=== PATIENT | female | born 1995 | race Caucasian/White ===

== ENCOUNTER 2023-06-28 10:23 | Outpatient (AMB) | payer OTHER, SELFPAY ==
--- NOTE | 2023-06-28 10:31 | MHC.OFFVIS ---
Intake Vital Signs 06/28/23 10:41 Height 5 ft 4 in Weight 130 lb BMI 22.3 BP 125/75 Blood Pressure Location Rt brachial Position Sitting Pulse 64 Intake Visit Reasons: painful internal hemorrhoids, rectal bleeding Intake Note: Patient referred by PCP Dr. Holloway for internal hemorrhoids. Present for 8ys. Patient c/o: on and off rectal bleeding. Denies constipation. Animal Rehabilitator Required: No Accompanied by: Self / Same As Patient Allergies No Known Allergies Allergy (Verified 06/28/23 10:36) Medication List - Last Reconciled 06/28/23 by Alonzo Matt MD emtricitabine-tenofovir alafen 120-15 mg (Descovy) tabs PO HPI painful internal hemorrhoids, rectal bleeding HPI Details 28-year-old male referred for hemorrhoid issues. He says that he has had hemorrhoids for many years. He describes problems with occasional swelling, and bleeding. He says that sometimes it would be seen on the toilet bowl itself. He is thomas and admits to anal receptive intercourse. He does notice pain and bleeding with this. He feels that these symptoms seemed to be worse over the years so he is interested in having hemorrhoid surgery. He denies constipation. [facility] Medical History (Updated 06/28/23 @ 10:57 by Alonzo Matt MD) Bleeding hemorrhoids Surgical History Hx of tonsillectomy Family History Maternal Grandmother Melanoma of skin Social History Alcohol intake: current Alcohol intake frequency: holidays/special occasions only Review of Systems Const Denies chills and Denies fever(s) Card Denies chest pain, Denies dyspnea and Denies dyspnea on exertion Resp Denies cough, Denies dyspnea and Denies dyspnea on exertion GI Reports hematochezia and Denies change in bowel habits Denies hematuria Musc Denies back pain and Denies limited range of motion Neuro Denies focal weakness and Denies convulsions Psych Denies depression and Denies mood swings Physical Exam Vital Signs: Last Vital Signs Pulse 64 06/28/23 10:41 BP 125/75 06/28/23 10:41 BMI result Body Mass Index 22.3 Const General: comfortable and no acute distress Orientation/consciousness: patient oriented x3 Neck Neck: Yes no lymphadenopathy Resp Auscultation: clear to auscultation bilaterally Cardio Rhythm: regular rhythm GI Other: Rectal exam shows external hemorrhoids left and right, anoscopy as described Palpation (GI): Soft to palpation, nontender and no guarding Neuro General: patient oriented x3 Office Procedures Anoscopy He was in sonal-knife position. The anoscope was gently inserted. A full examination of the anal canal was done. He had both internal external hemorrhoidal columns on the left and right side, prominent. One of the columns on the left seems to bleed easily. However, there were no obvious lesions. There was no fissure. There was no induration on digital exam. [id number] Assessment & Plan Assessment & Plan (1) Bleeding hemorrhoids: Code(s): K64.9 - Unspecified hemorrhoids Plan: He has internal and external hemorrhoids, with multiple columns. He describes frequent bleeding and occasional swelling and pain. He is contemplating on proceeding with hemorrhoidectomy. I reviewed with him the technique of this procedure. I discussed the risks including but not limited to bleeding, infections, postop pain, poor healing, sphincter injury, as well as the benefits and alternatives. I reviewed with him what to expect postoperatively He understands and says he will call me once he is ready to schedule for this procedure. Coding Level of Care Code New Pt Level 3 (77897) Diagnoses Bleeding hemorrhoids K64.9 CPT Codes Details - CPT: 58573-[id number] ([id number])
[2023-06-28 10:41] VITALS: BP 125/75; PULSE 64; BMI 22.3
== END 2023-06-28 11:35 | disposition home or self-care (01) ==
PROVIDERS: PCP Internal Medicine; Referring Provider Internal Medicine; Visit Provider Surgery
DX: K64.9 Unspecified hemorrhoids (principal)
CPT/HCPCS: 46600; 99203

== ENCOUNTER → 2023-06-28 10:23 | Outpatient (BNVA) | payer OTHER, SELFPAY | PROVIDERS: PCP Internal Medicine; Referring Provider Internal Medicine; Visit Provider Surgery | DX: K64.8 Other hemorrhoids (principal); K62.5 Hemorrhage of anus and rectum | CPT/HCPCS: 46600; 99202 ==

== ENCOUNTER 2023-10-24 14:20 | Outpatient (REF) | payer OTHER, SELFPAY ==
[2023-10-26 06:53] LABS: Mumps Virus IgG Antibody <9.00 AU/mL; Rubeola IgG (Measles) >300.00 AU/mL
== END 2023-10-24 14:21 | disposition home or self-care (01) ==
LOC: HO.LAB 14:20
PROVIDERS: PCP Internal Medicine; Visit Provider Internal Medicine
DX: Z01.84 Encounter for antibody response examination (principal)
CPT/HCPCS: 36415; 86735; 86762; 86765

== ENCOUNTER 2024-03-20 08:44 | Outpatient (AMB) | payer OTHER, SELFPAY ==
--- NOTE | 2024-03-20 08:48 | A.OFFVIS_ITS ---
Vital Signs 03/20/24 08:53 Weight 133 lb BP 112/68 Blood Pressure Location Rt brachial Position Sitting Pulse 72 Intake Visit Reasons: Discuss Hemorroid surgery Intake Note: Patient last visit June 2023. Today's appointment scheduled to re- discuss hemorrhoidectomy procedure. Patient c/o; external hemorrhoids, bleeding. Used Preparation H but no improvement. Also tried homeopathy suppository. Water Maintenance Supervisor Required: No Accompanied by: Self / Same As Patient Allergies No Known Allergies Allergy (Verified 03/20/24 08:58) Medication List - Last Reconciled 03/20/24 by Alonzo Matt MD emtricitabine-tenofovir alafen 120-15 mg (Descovy) tabs PO HPI HPI Discuss Hemorroid surgery: Details: 28-year-old male here for follow-up for his hemorrhoids. I had seen him in June, 4 complaints of bleeding and pain with this hemorrhoids. At that time, I did offer him the option of hemorrhoidectomy but he was not ready for this then. Examination had shown prominent internal external hemorrhoidal columns He does state that he seems to have now more pain with bowel movements. He is thomas and admits to anal receptive intercourse and says that this hurts as well. He describes seeing blood per rectum on wiping periodically. He denies constipation. [facility] Medical History (Updated 03/20/24 @ 09:12 by Alonzo Matt MD) Anal fissure Bleeding hemorrhoids Surgical History Hx of tonsillectomy Family History Maternal Grandmother Melanoma of skin Social History Alcohol intake: current Alcohol intake frequency: holidays/special occasions only Review of Systems Const Denies chills and Denies fever(s) Card Denies chest pain, Denies dyspnea and Denies dyspnea on exertion Resp Denies cough, Denies dyspnea and Denies dyspnea on exertion GI Reports hematochezia and Denies change in bowel habits Denies hematuria and Denies difficulty urinating Musc Denies back pain and Denies limited range of motion Neuro Denies focal weakness and Denies convulsions Psych Denies depression and Denies mood swings Physical Exam Vital Signs: Last Vital Signs Pulse 72 03/20/24 08:53 BP 112/68 03/20/24 08:53 Const General: comfortable and no acute distress Orientation/consciousness: patient oriented x3 Neck Neck: Yes no lymphadenopathy Resp Auscultation: clear to auscultation bilaterally Cardio Rhythm: regular rhythm GI Other: Rectal exam - posterior midline fissure with a sentinel pile noted on retraction, anoscopy not done in view of tenderness Palpation (GI): Soft to palpation, nontender and no guarding Neuro General: patient oriented x3 Assessment & Plan Assessment & Plan (1) Anal fissure: Code(s): K60.2 - Anal fissure, unspecified Category: Medical Plan: Examination today actually shows a posterior midline fissure at the distal dentate line along with a sentinel pile. He does have small hemorrhoids I explained to him that 1 option is to proceed with exam under anesthesia, lateral internal sphincterotomy to help with his anal fissure. I explained to him the technique of this procedure. I reviewed the risks including but not limited to bleeding, infections, sphincter dysfunction, as well as the benefits and alternatives. I reviewed with him what to expect postoperatively. He has given consent I also told him that if we see large hemorrhoids, we may remove these as well. Coding Level of Care Code Est Pt Level 3 (02739) Diagnoses Anal fissure K60.2
[2024-03-20 08:53] VITALS: BP 112/68; PULSE 72
== END 2024-03-20 09:31 | disposition home or self-care (01) ==
PROVIDERS: PCP Internal Medicine; Visit Provider Surgery
DX: K60.2 Anal fissure, unspecified (principal)
CPT/HCPCS: 99213

== ENCOUNTER → 2024-03-20 08:44 | Outpatient (BNVA) | payer OTHER, SELFPAY | PROVIDERS: PCP Internal Medicine; Visit Provider Surgery | DX: K60.2 Anal fissure, unspecified (principal) | CPT/HCPCS: 99212 ==

== ENCOUNTER 2024-04-18 09:05 | Day surgery (SDC) | payer OTHER, SELFPAY ==
[2024-04-16 11:46] VITALS: BMI 22.8
--- NOTE | 2024-04-16 13:43 | P.CONAN_ITS ---
Documented by User: Ely Patel NP 04/16/24 13:43 HPI - Anesthesia Eval Consult details Narrative: 28yo M for EUA,Lateral Internal Sphincterotomy [facility] Active Problems Active Problems: All Active Problems Anal fissure (Acute) Bleeding hemorrhoids (Acute) Past Medical History Medical History Anal fissure Bleeding hemorrhoids Family History Family History Maternal Grandmother Melanoma of skin Surgical History Surgical History Hx of tonsillectomy Social History Social History Household Members Other:: parents Are you a primary grounds caretaker to a significant other at home: No Do you presently have visiting nurse or other home services: No Alcohol intake: current Alcohol intake frequency: holidays/special occasions o nly Patient Tobacco Use Status: Never used Tobacco Substance Use Frequency: Daily Have you been hit, kicked, punched, or otherwise hurt by someone within the past year? If so, by whom?: No Are you DNR?: No Advance Directives: No Advance Directives Information Provided: Yes Recently lost weight without trying: No Nutrition Risks: No Nutritional Risk Meds Allergies Allergy/AdvReac Type Severity Reaction Status Date / Time No Known Allergies Allergy Verified 04/18/24 09:35 Exam Height,Weight and Vital Signs: Height 5 ft 4 in Weight 60.328 kg Assessment and Plan Assessment Anesthesia Assessment: Chart Reviewed Documented by User: Ashok Bland MD 04/18/24 10:09 [facility] Past Medical History Medical History Anal fissure Bleeding hemorrhoids Family History Family History Maternal Grandmother Melanoma of skin Family history of problems with anesthesia: No Surgical History Surgical History Hx of tonsillectomy History of Problems with Anesthesia: No Social History Social History Household Members Other:: parents Are you a primary grounds caretaker to a significant other at home: No Do you presently have visiting nurse or other home services: No Alcohol intake: current Alcohol intake frequency: holidays/special occasions only Patient Tobacco Use Status: Never used Tobacco Substance Use Frequency: Daily Have you been hit, kicked, punched, or otherwise hurt by someone within the past year? If so, by whom?: No Are you DNR?: No Advance Directives: No Advance Directives Information Provided: Yes Recently lost weight without trying: No Nutrition Risks: No Nutritional Risk Meds Allergies Allergy/AdvReac Type Severity Reaction Status Date / Time No Known Allergies Allergy Verified 04/18/24 09:35 Exam Airway Mallampati Class: I TM Dist: >3cm Neck ROM: Full Loose/Missing/Broken Teeth: No Heart: ok Lungs: ok Assessment and Plan Assessment Anesthesia Assessment: Anesthesia Plan Discussed Final Anesthetic Review Family History of Problems with Anesthesia: No History of Problems with Anesthesia: No NPO: Yes ASA Class: I Final Preanesthetic Review: No Changes in Pt Med Stat, Meds/Allgs Chart Reviewed, Consent Obtained/Reviewed and Anes Risks/Benef Reviewed Patient Risk: Low Procedure Risk: Intermediate Anesthetic Plan Anesthetic Plan: GA and Agree w/ Assess. and Plan Disposition: Standard PACU
[2024-04-18 09:20] VITALS: BMI 22.7
[2024-04-18] MEDS: Lactated Ringers 1,000 ML 100 ML IVCONT (09:26)
[2024-04-18 09:34] VITALS: BP 115/59; PULSE 73; RESP 18; TEMP 36.7; O2SAT 100
--- NOTE | 2024-04-18 09:40 | MHC.SHP ---
Pre-Procedural Eval Section A - 24 Hr Update-Section A only Date of Service: 04/18/24 The patient is an INPATIENT: No Changes since office visit: No Cold of Flu in the past 2 weeks, No New Medical Problems, No Changes in Medication and No Patient answered all questions The patient has been examined within 24 hours of the surgical procedure. The History & Physical has been completed within 30 days and I have reviewed it.: Yes Section B - Complete if H&P > 30 days Chief Complaint: Acute anal fissure Allergies: Allergies Allergy/AdvReac Type Severity Reaction Status Date / Time No Known Allergies Allergy Verified 04/18/24 09:35 Plan I have reviewed the history and physical and performed a pertinent physical examination on my patient. No changes have occurred unless specified. Time Spent With Patient Time: Total time managing care of this patient today ____ minutes.
--- NOTE | 2024-04-18 10:36 | P.OP_ITS ---
Operative Note Operative Note Date of Service: 04/18/24 Narrative: Preop diagnosis: Anal fissure Postop diagnosis: Anal fissure, posterior midline with a sentinel pile Procedure: Exam under anesthesia left lateral internal sphincterotomy Surgeon: Alonzo Matt MD The patient is a 28-year-old male with complaints of severe pain with bowel movements along with passage of bright blood per rectum. Examination in the office suggested a posterior midline fissure. He understood the technique of exam under anesthesia, lateral internal sphincterotomy. He was aware of the risks, benefits, and alternatives and wanted to proceed He was brought to the operating room. He was placed in prone sonal-knife position under general anesthesia via laryngeal mask airway. The buttocks were retracted with wide tape laterally. The perianal area was prepped and draped in the usual sterile fashion. A surgical time-out was done. The patient received Cefotan 2 g IV preoperatively The perianal area was infiltrated with lidocaine 1%. Examination of the anal orifice revealed a sentinel pile and the posterior midline. Retraction of the anal orifice revealed a posterior midline fissure in the distal anoderm I inserted the Yadi Morin retractor. I examined the anal canal circumfer entially. There were no other lesions seen. There was no other induration or any signs of induration I palpated for the intersphincteric groove in the anal verge. I made a short incision on the skin overlying the intersphincteric groove with a blade 11. I bluntly dissected with a hemostat to identify the internal sphincters. I positioned the hemostat in the intersphincteric plane to protect the external sphincter. I divided the internal sphincter fibers with electrocautery down to the level of the dentate line. I closed the incision with a running chromic 3-0 stitch. There was note of good hemostasis I then infiltrated the perianal area generously with Marcaine 0.5% for postop analgesia. The procedure was then completed The patient tolerated the procedure well. There were no immediate complications Was extubated without difficulty and transferred to the recovery room with stable vital signs.
[2024-04-18 10:55] VITALS: BP 114/76; PULSE 83; RESP 16; TEMP 36.8; O2SAT 99
[2024-04-18 11:00] VITALS: BP 116/69; PULSE 84; RESP 16; O2SAT 98
[2024-04-18 11:05] VITALS: BP 116/80; PULSE 82; RESP 16; O2SAT 100
[2024-04-18 11:10] VITALS: BP 115/73; PULSE 70; RESP 16; O2SAT 100
[2024-04-18 11:25] VITALS: BP 109/78; PULSE 12; RESP 16; TEMP 36.9; O2SAT 98
== END 2024-04-18 12:07 | disposition home or self-care (01) ==
PROVIDERS: PCP Internal Medicine; Visit Provider Surgery
PROC: (CPT 46080; principal; 2024-04-18 10:40)
DX: K60.0 Acute anal fissure (principal); K64.8 Other hemorrhoids
CPT/HCPCS: 46080; J1885; J2003; J2704; J2795; J3010

== ENCOUNTER → 2024-04-18 09:05 | Outpatient (BNV) | payer OTHER, SELFPAY | PROVIDERS: PCP Internal Medicine; Visit Provider Surgery | DX: K60.0 Acute anal fissure (principal) | CPT/HCPCS: 46080 ==

== ENCOUNTER 2024-04-28 13:54 | Outpatient (AMB) | payer OTHER, SELFPAY ==
--- NOTE | 2024-04-28 14:07 | MHC.OFFVIS ---
Vital Signs 04/28/24 14:12 Height 5 ft 6 in Weight 134 lb 6 oz BMI 21.7 Intake Visit Reasons: s/p lateral internal sphincterotomy Intake Note: This patient presents for post-op assessment status post lateral internal sphincterotomy. Pt c/o; reports he has noticed a mucus yellowish discharge within the last couple of days status post surgery, reports prominent and sensitive vein on the groin which he had before but now is more sensitive. Merchandise Adjustment Clerk Required: No Accompanied by: Self / Same As Patient Allergies No Known Allergies Allergy (Verified 04/28/24 14:14) HPI HPI s/p lateral internal sphincterotomy: Details: He had undergone lateral internal sphincterotomy last 04/18/2024 and he is here for postop visit. He says he feels well overall. He describes postop pain although he says that this has improved significantly in the past 2 days. He has had good bowel movements. [facility] Medical History Anal fissure Bleeding hemorrhoids Surgical History Hx of surgical procedure (~04/18/24) Hx of tonsillectomy Family History Maternal Grandmother Melanoma of skin Social History Household Members Other:: parents Are you a primary acute care physician to a significant other at home: No Do you presently have visiting nurse or other home services: No Alcohol intake: current Alcohol intake frequency: holidays/special occasions only Patient Tobacco Use Status: Never used Tobacco Review of Systems Const Denies chills and Denies fever(s) Physical Exam Vital Signs: BMI result Body Mass Index 21.7 Const Other: Able to sit down comfortably General: comfortable and no acute distress Resp Effort & Inspection: normal respiratory effort GI Other: Rectal exam shows sphincterotomy site to be healing well, not infected, no discharge or induration Assessment & Plan Assessment & Plan (1) Anal fissure: Code(s): K60.2 - Anal fissure, unspecified Category: Medical Plan: Status post lateral internal sphincterotomy. He is doing very well. His incision is healing well . I advised him to avoid straining and constipation. We will see him again in the office in about a month for another wound check. Coding Level of Care Code Global (57437) Diagnoses Anal fissure K60.2
[2024-04-28 14:12] VITALS: BMI 21.7
== END 2024-04-28 14:18 | disposition home or self-care (01) ==
PROVIDERS: PCP Internal Medicine; Visit Provider Surgery
DX: K60.2 Anal fissure, unspecified (principal)
CPT/HCPCS: 99024

== ENCOUNTER → 2024-04-28 13:54 | Outpatient (BNVA) | payer OTHER, SELFPAY | PROVIDERS: PCP Internal Medicine; Visit Provider Surgery | DX: K60.2 Anal fissure, unspecified (principal) | CPT/HCPCS: 99212 ==

== ENCOUNTER 2024-06-12 10:14 | Outpatient (AMB) | payer OTHER, SELFPAY ==
[2024-06-12 10:17] VITALS: BMI 21.9
--- NOTE | 2024-06-12 10:17 | MHC.OFFVIS ---
Vital Signs 06/12/24 10:17 Height 5 ft 6 in Weight 136 lb BMI 21.9 Intake Visit Reasons: s/p lateral internal sphincterotomy Intake Note: This patient presents for a follow-up status post EUA lateral internal sphincterotomy. Pt c/o; reports no complaints. Chief Deputy Clerk/Bailiff Required: No Accompanied by: Self / Same As Patient Allergies No Known Allergies Allergy (Verified 06/12/24 10:21) HPI HPI s/p lateral internal sphincterotomy: Details: He continues to do well after sphincterotomy for an anal fissure last April,. He says he has no significant complaints at this time. He says his bowel movements are much better. PFSH Medical History Anal fissure Bleeding hemorrhoids Surgical History Hx of surgical procedure (~04/18/24) Hx of tonsillectomy Family History Maternal Grandmother Melanoma of skin Social History Household Members Other:: parents Are you a primary wound care rn to a significant other at home: No Do you presently have visiting nurse or other home services: No Alcohol intake: current Alcohol intake frequency: holidays/special occasions only Patient Tobacco Use Status: Never used Tobacco Review of Systems Const Denies chills and Denies fever(s) GI Denies hematochezia Physical Exam Vital Signs: BMI result Body Mass Index 21.9 Const General: comfortable and no acute distress GI Other: Rectal exam shows the sphincterotomy site to be well healed Assessment & Plan Assessment & Plan (1) Anal fissure: Code(s): K60.2 - Anal fissure, unspecified Category: Medical Plan: Status post lateral internal sphincterotomy. He continues to do very well. His incision is well healed I advised him on avoiding straining and constipation. He can follow up on a p.r.n. basis. Coding Level of Care Code Global (00834) Diagnoses Anal fissure K60.2
--- OUTSIDE RECORDS SUMMARY | 2024-06-12 12:08 | XMS_ITS | Encounter Summary ---
Author Organization [facility] Address [address] [place] [id number] Phone Care Team Providers Care Weapons Officer [employer] Name Role Phone Unavailable Primary Care Provider Unavailabl e Encounter Details Date Type Department Care Team (Late st Contact Info) Description 08/26/2017 Conversion Encounter [facility] [address] [address] Social History Tobacco Use Types Packs/Day Years Used Date Smoking Tobacco: Never Assessed Sex and Gender Information Value Date Recorded Sex Assigned at Not on file Legal Sex Male 6:10 PM EDT Gender Identity Not on file Sexual Orientation Not on file documented as of this encounter Plan of Treatment Not on file documented as of this encounter Visit Diagnoses Not on filedocumented in this encounter
--- OUTSIDE RECORDS SUMMARY | 2024-06-12 12:08 | XMS_ITS | Clinical Summary ---
Author Organization [facility] Address [address] [place] [id number] Phone Care Team Providers Care Hand Etcher Name Role Phone Unavailable Primary Care Provider Unavailabl e Immunizations Immunization Administration Dates Next Due DTaP 07/20/1998, 5,1993,09/06,1993 Hep B, ped/adol 01/25/1994,1993,1993 Hib (PRP-T) 08/21/1994, 4,1993,07/06 MMR 07/20/1998,01/03/1995 Meningococcal Conj (Menactra) MCV4P 09/18/2011,0 10/16/2007 OPV 07/20/1998, 5,1993,07/06 Td (adult) (Tenivac), 5 Lf t etanus toxoid, PF, adsorbed 12/09/2003 Tdap 09/30/2008 Varicella 05/10/1994 Family History Relation Name Status Comments Father Alive healthy age: 56 Maternal Grandfather cancer, prostate, dementia; bladder cancer Maternal Grandmother Alive neuropa thy of feet; Hodgkins lymphoma Mother Alive healthy, anemic age: 55 Other Alive Siblings: healt hy Paternal Grandfather Alive cancer Paternal Grandmother Alive healthy Social History Tobacco Use Types Packs/Day Years Used Date Smoking Tobacco: Never Assessed Sex and Gender Information Value Date Recorded Sex Assigned at Not on file Legal Sex Male 6:10 PM EDT Gender Identity Not on file Sexual Orientation Not on file Last Filed Vital Signs Vital Sign Reading Time Taken Comments Blood Pressure 112/68 09/18/2011 12:00 AM EDT Pulse - - Temperature 37.1 ??C (98.7 ??F) 09/01/2011 12:00 AM E DT Respiratory Rate - - Oxygen Saturation - - Inhaled Oxygen Concentration - - Weight 58 kg (127 lb 12.8 oz) 09/18/2011 12:00 A M EDT Height 166.4 cm (5' 5.5 ) 09/18/2011 12:00 AM ED T Body Mass Index 20.94 09/18/2011 12:00 AM EDT Plan of Treatment Health Maintenance Due Date Last Done Comments Varicella Vaccines (2 of 2 - 2-dose childhood series) 08/17/1998 05/10/1994 DTaP,Tdap,and Td Vaccines (7 - Td or Tdap) 09/30/2018 09/30/2008, 12/09/2003, 07/20/1998, Additional history exists Influenza Vaccines (#1) 2023 COVID-19 Vaccine ( season) 2023 Hepatitis B Vaccines Completed 01/25/1994, 1993, 1993 HIB Vaccines Completed 08/21/1994, 07/1993, 1993, Additional history exists IPV Vaccines Completed 07/20/1998, 08/07, 1993, Additional history exists MMR Vaccines Completed 07/20/1998, 01/03/1995 Meningococcal Vaccine Completed 09/18/2011, 008 HPV Vaccines Aged Out No longer eligi ble based on patient's age to complete this topic Hepatitis A Vaccines Aged Out No long er eligible based on patient's age to complete this topic Men B Vaccine Aged Out No longer elig ible based on patient's age to complete this topic Pneumococcal Vaccine Aged Out No long er eligible based on patient's age to complete this topic
== END 2024-06-12 10:26 | disposition home or self-care (01) ==
PROVIDERS: PCP Internal Medicine; Visit Provider Surgery
DX: K60.2 Anal fissure, unspecified (principal)
CPT/HCPCS: 99024

== ENCOUNTER → 2024-06-12 10:14 | Outpatient (BNVA) | payer OTHER, SELFPAY | PROVIDERS: PCP Internal Medicine; Visit Provider Surgery | DX: Z09 Encounter for follow-up examination after completed treatment for conditions other than malignant neoplasm (principal); Z98.890 Other specified postprocedural states | CPT/HCPCS: 99212 ==